=== PATIENT | male | born 1960 | race Caucasian/White ===

== ENCOUNTER 2017-12-16 23:30 | Emergency (ER) | payer OTHER ==
[~2017-12-16 23:30] MED LIST: ACTOS 15MG TAB15 MG PO; AMLODIPINE10 MG PO; CIPRO 500MG TA500 MG PO; CLEOCIN HCL300 M1 PO; CYCLOBENZAPRINE5 M2 PO; DILAUDID2 MG PO; HCTZ/LISINOPRIL1 TA2 PO; HYDRALAZINE10 MG PO; METFORMIN HCL500 MG PO; MORPHINE S10 MG/1 M1 IV; NAPROSYN500 M1 PO; NICOTINE PATCH1 EAC2 TOP; NORVASC 10MG10 MG PO; NORVASC10 M1 PO; NOVOLOG100 UNIT/2 SC; PERCOCET 325 MG1 TA2 PO; PERCOCET 5-3251 EACH PO; PRINIVIL10 MG PO; PROTONIX 40MG T40 MG PO; TRILIPIX 135 M135 MG PO; UNASYN 3 GM VIAL3 GM IV
== END 2017-12-16 23:57 | disposition admitted as inpatient to this hospital (09) ==
LOC: ERH 23:30
DX: R29.898 Other symptoms and signs involving the musculoskeletal system (principal)
CPT/HCPCS: 93005; 93010; 99281

== ENCOUNTER 2017-12-23 11:38 | Inpatient (IN) | payer OTHER ==
[~2017-12-23] VITALS: Ht 162.6 cm; Wt 81.7 kg
--- NOTE | 2017-12-23 12:48 | ED GENERAL ADULT ---
See Addendum History of Present Illness General Chief Complaint: General Adult Stated Complaint: PT STATES "I FOUND A TICK ON ME" WEAKNESS Source: patient Exam Limitations: intoxication Vital Signs & Intake/Output Vital Signs & Intake/Output Vital Signs Date Time Temp Pulse Resp B/P B/P Pulse O2 O2 Flow FiO2 Mean Ox Delivery Rate 12/23 1147 98.0 100 18 156/103 97 Room Air Allergies Coded Allergies: NO KNOWN ALLERGIES (02/09/15) Reconcile Medications Amlodipine Besylate (Norvasc) 10 MG TABLET 1 TAB PO DAILY HTN (Reported) Ampicillin Sodium/Sulbactam Na (Unasyn 3 Gm Vial) 3 GRAM VIAL 1 BAG IV Q8 ABSCESS Cyclobenzaprine HCl 5 MG TABLET 1 TAB PO TIDPRN PRN MUSCLE SPASMS Fenofibric Acid (Trilipix 135 MG CAP) 135 MG CAPSULE. 1 CAP PO DAILY daily (Reported) HYDRALAZINE HCL (Hydralazine) 10 MG TABLET 1 TAB PO TID HYPERTENSIOM Insulin Aspart (Novolog) 100 UNIT/ML VIAL 0 UNITS SC TIDAC DM TYPE 2 BLOOD SUGAR UNITS < 80 0 80-150 0 151-200 2 201-250 4 251-300 6 301-350 8 351-400 10 >400 12 CALL Morphine Sulfate 10 MG/ML VIAL 6 MG IV Q6P PRN PAIN 5-10 Naproxen (Naprosyn) 500 MG TABLET 1 TAB PO BID PRN PAIN AND INFLAMMATION Nicotine (Nicotine Patch) 14 MG/24 HOUR PATCH.TD24 14 MG TOP DAILY SMOKING Pantoprazole Sodium (Protonix) 40 MG TABLET. 40 MG PO DAILY GERD (Reported) Triage Note: PER PT WEAKNESS AND NERVE DAMAGE NOT "STRAIGHT" ON L SIDE CANT HOLD THINGS WITH L HAND TOOK A COUPLE OF LYRICA SLIGHT RELIEF. PT SPEECH ?SLURRED ADMITS TO WEED USE THIS AM EQUAL GRASPS GOOD STRENGTH TO ALL 4 EXTREMITIES Triage Nurses Notes Reviewed? yes HPI: PT PRESENTS TO ER ADMITTEDLY HIGH AND ON COCAINE. LAST USE PRIOR TO ARRIVAL. NOTES HE HAS HAD LEFT SIDED WEAKNESS X 3-5 DAYS (UNCLEAR DUE TO INTOX). PT HAD TROUBLE WITH HAND FACILITY ADMINISTRATOR ON THE LEFT. CONTINUED DROPPING THINGS. ALSO NOTED TROUBLE WITH WALKING, BUT IT IS VERY DIFFICULT TO ASSESS THIS HX. TOOK GIRLFRIENDS LYRICA X 2 DAYS TO SEE IF THAT WOULD HELP. HE HAS SIGNIFICANT MEDICAL COMORBIDITIES REPORTED BUT IS NONADHERENT WITH MED RX REGIMEN.HAS HTN, DM PER HIS REPORT. OTHERS UNKNOWN. RECENTLY FOUND A TICK ON HIS LOWER ABDOMEN. (TIMING UNCLEAR). WANTS TO GET CLEAN, AND FEEL BETTER. (Adele Vidal PA-C) Past History Travel History Traveled to [place] past 21 day No Medical History Any Pertinent Medical History? 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 Yes (Adele Vidal PA-C) Review of Systems Review of Systems Constitutional: Reports: see HPI, chills, weakness. Denies: diaphoresis, fever, malaise. EENTM: Denies: see HPI, blurred vision, double vision, visual changes, eye pain. Respiratory: Denies: see HPI, cough, hemoptysis, short of breath. Cardiovascular: Denies: see HPI, chest pain, edema, orthopena. GI: Denies: abdominal pain, melena, nausea, bloody stool, changes in stool, vomiting. Genitourinary: Denies: no symptoms. Musculoskeletal: Denies: see HPI. Skin: Reports: lesions (RIGHT LOWER ABDOMEN). Neurological/Psychological: Reports: anxiety, depressed, emotional problems, tremors. All Other Systems: Reviewed and Negative (Adele Vidal PA-C) Physical Exam Physical Exam General Appearance: well developed/nourished, anxious, intoxicated Head: atraumatic, normal appearance Eyes: Bilateral: other (DILATION). Ears, Nose, Throat: normal pharynx, hearing grossly normal, POOR DENTITION/ EDENTULOUS Neck: supple, full range of motion Respiratory: normal breath sounds, chest non-tender, no respiratory distress Cardiovascular: regular rate/rhythm Gastrointestinal: normal bowel sounds, soft, non-tender Extremities: normal inspection, no edema Neurologic/Psych: awake, alert, oriented x 3, abnormal gait, aphasia, motor/ sensory deficits Skin: intact, normal color Core Measures ACS in differential dx? No CVA/TIA Diagnosis: Yes Sepsis Present: No Sepsis Focused Exam Completed? No (Young OROURKE,Adele) Progress Differential Diagnoses I considered the following diagnoses in my evaluation of the patient: CVA TIA Intoxication (majrijuana, cocaine, etoh) acute renal failure] 1432: pt with acute kidney injury. on ivf. awaiting urine and urine tox. CT head noted with chronic microvascular changes. Cannot r/o acute changes. Discussed with MOD/hospitalist. Admit for further eval. with MRI and follow labs. Plan of Care: Orders Procedure Date/time Status Regular Diet 12/23 D Active Patient Data 12/23 1435 Active OXYGEN SETUP (GEN) 12/23 1425 Active Saline Lock 12/23 1425 Active Admit to inpatient 12/23 1425 Active Vital Signs 12/23 1425 Active Activity/Ambulation 12/23 1425 Active Code Status 12/23 1425 Active Intake & Output 12/23 1300 Active ETHANOL 12/23 1239 Complete URINE DRUGS OF ABUSE 12/23 1238 Active URINALYSIS 12/23 1238 Active TROPONIN LEVEL 12/23 1238 Complete COMPREHENSIVE METABOLIC PANEL 12/23 1238 Complete CBC WITHOUT DIFFERENTIAL 12/23 1238 Complete EKG 12/23 1238 Active Laboratory Tests 12/23/18 1256: Anion Gap 12, Estimated GFR 39 L, BUN/Creatinine Ratio 16.7, Glucose 150 H, Calcium 9.0, Total Bilirubin 0.6, AST 20, ALT 42, Alkaline Phosphatase 60, Troponin I 0.02, Total Protein 6.6, Albumin 3.8, Globulin 2.8, Albumin/Globulin Ratio 1.4, CBC w Diff NO MAN DIFF REQ, RBC 5.33, MCV 86.3, MCH 29.5, MCHC 34.2, RDW 12.5, MPV 8.1, Gran % 64.6, Lymphocytes % 23.3, Monocytes % 8.8, Eosinophils % 2.8, Basophils % 0.5, Absolute Granulocytes 6.8 H, Absolute Lymphocytes 2.4, Absolute Monocytes 0.9 H, Absolute Eosinophils 0.3, Absolute Basophils 0, Serum Alcohol < 10.0 Initial ED EKG: normal sinus rhythm, NSR (Adele Vidal PA-C) Departure Departure Disposition: STILL A PATIENT Condition: Stable Clinical Impression Primary Impression: Acute renal failure (ARF) Secondary Impressions: Stroke Referrals: Patient Has No Primary Care Dr (PCP/Family) Departure Forms: Customer Survey General Discharge Information (Adele Vidal PA-C) PA/PLATE GRAINER Co-Sign Statement Statement: ED Attending supervision documentation- I saw and evaluated the patient. I have also reviewed all the pertinent lab results and diagnostic results. I agree with the findings and the plan of care as documented in the PA's/PLATE GRAINER's documentation. x I have reviewed the ED Record and agree with the PA's/PLATE GRAINER's documentation. [] Additions or exceptions (if any) to the PAs/PLATE GRAINER's note and plan are summarized below: [] (Peg HAYES,Fernando) Critical Care Note Critical Care Note Critical Care Time: non-applicable (Adele Vidal PA-C)
[2017-12-23 13:07] LABS: ABSOLUTE BASOPHIL COUNT 0 /CUMM (0.0-0.2); ABSOLUTE EOSINOPHIL COUNT 0.3 /CUMM (0.0-0.7); ABSOLUTE GRANULOCYTE CT 6.8 /CUMM (1.4-6.5); ABSOLUTE LYMPH COUNT 2.4 /CUMM (1.2-3.4); ABSOLUTE MONOCYTE COUNT 0.9 /CUMM (0.10-0.60); BASOPHIL % 0.5 % (0.0-2.0); EOSINOPHIL % 2.8 % (0-5); GRANULOCYTE % 64.6 % (42.2-75.2); MEAN CORPUSCULAR HGB 29.5 PG (27.0-31.0); MEAN CORPUSCULAR HGB CONC 34.2 G/DL (33.0-37.0); MEAN CORPUSCULAR VOLUME 86.3 FL (80.0-94.0); MEAN PLATELET VOLUME 8.1 FL (7.4-10.4); PLATELET COUNT 253 /CUMM (130-400); RBC DISTRIBUTION WIDTH 12.5 % (11.5-14.5); RED BLOOD CELL CT 5.33 /CUMM (4.70-6.10); WHITE BLOOD CELL COUNT 10.5 /CUMM (4.8-10.8)
--- NOTE | 2017-12-23 13:40 | CT SCAN REPORT ---
EXAMINATION: CT HEAD WITHOUT CONTRAST CLINICAL INFORMATION: Left-sided weakness for 3 days. Assess for stroke. COMPARISON: CT scan maxillofacial 05/01/2016. CT scan of the head 07/04/2009. TECHNIQUE: Contiguous axial imaging was performed from the skull base to vertex without intravenous administration of contrast. DLP: 607.31 mGy-cm FINDINGS: The study redemonstrates areas of linear lucency in the anterior basal ganglia bilaterally, more extensive on the right than the left. These were present on the 2015 study, but are new compared to the 2009 study. There are consistent with sequelae of prior infarcts. An area of low attenuation is noted in the right periventricular white matter superior medial to the linear area of low attenuation, and is consistent with a chronic infarct. There are areas of low attenuation in the right centrum semiovale, which may be consistent with chronic microvascular ischemic changes, although an area of more acute ischemia cannot be excluded. There are moderate atheromatous calcifications of the bilateral cavernous internal carotid arteries and the left vertebral artery. No dense middle cerebral artery is demonstrated. There is no evidence of acute intracranial hemorrhage or territorial infarction. There is no abnormal mass effect or midline shift. Hardy to white matter differentiation is well preserved. No extra-axial fluid collections are identified. The ventricles and sulci are within normal limits. There is interval increase in the calcification in the interhemispheric fissure anteriorly. There are no acute osseous findings. The study partially demonstrates a lipoma posterior to the right sternocleidomastoid muscle. The mastoid air cells are well-aerated. The left frontal sinus is not pneumatized. The other paranasal sinuses appear well-aerated. IMPRESSION: 1. There are no acute territorial infarcts or bleeds. 2. There are linear areas of low attenuation in the basal ganglia bilaterally, demonstrated on prior imaging consistent with sequelae of chronic infarcts. An area of low attenuation in the right periventricular white matter is is consistent with sequelae of a chronic infarct. 3. Low attenuation in the right sharp radiata is nonspecific may be consistent with chronic microvascular ischemic changes, although an area of more acute ischemia cannot be excluded on the basis of this study.
--- NOTE | 2017-12-23 14:56 | History & Physical ---
Kelby HAYES,[facility] 12/23/17 1455: General Information and HPI MD Statement: I have seen and personally examined CHRIS BLANK and documented this H&P. The patient is a 57 year old M who presented with a patient stated chief complaint of cocaine abuse and left sided weakness Source of Information: patient, friend Exam Limitations: no limitations History of Present Illness: 57-year-old gentleman with a past medical history significant for cocaine abuse with multiple outpatient and rehabilitation treatment failures, CK D stage III, type 2 diabetes, hypertension, noncompliance with medication therapy stopping his BP and diabetes medication more than a year ago, presents to [facility] ED with c/o of 1 week history of left-sided weakness and request for cocaine detox. Pt reports that he uses cocaine on almost a daily basis and his last use was a few hours before presenting to the ED. He also reports that for the past 1 week he has noticed left-sided upper and lower extremity weakness with noticeable decrease of strength while ambulating and also use when using his left hand for grasping objects. Denies similar symptoms in the past. No report any recent head or back trauma. He is a poor historian and is not able to give more details regarding his left-sided weakness. He does deny any facial droop, dysarthria, confusion or disorientation. His girlfriend was at bedside and did correlate pt's story that there was no focal neurological deficit other than the left sided weakness. No report of any fever, chills, shortness of breath, chest pain, palpitation, diaphoresis,abdominal pain or dysuria. He does report removing a tick on his right inguinal area on Sunday, he does not recall how long the tick was on his body. Regarding his cocaine use, he states that he's been to rehabilitation multiple times without any success. He appears remorseful about his cocaine use and repeatedly states that he needs help to fix his cocaine problem. 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 self Services at Home: None Primary Language: Urdu Illicit Drug Use: cocaine, marijuana Living Will? no Functional Ability ADLs Independent: dressing, eating, toileting, bathing. Ambulation: independent IADLs Independent: shopping, housework, finances, food prep, telephone, transportation , medication admin. Review of Systems Review of Systems Constitutional: Reports: see HPI. EENTM: Reports: no symptoms. Cardiovascular: Reports: no symptoms. Respiratory: Reports: no symptoms. GI: Reports: diarrhea. Genitourinary: Reports: no symptoms. Musculoskeletal: Reports: no symptoms. Skin: Reports: no symptoms. Neurological/Psychological: Reports: see HPI. Hematologic/Endocrine: Reports: no symptoms. Immunologic/Allergic: Reports: no symptoms. All Other Systems: Reviewed and Negative Exam & Diagnostic Data Last 24 Hrs of Vital Signs/I&O Vital Signs Date Time Temp Pulse Resp B/P B/P Pulse O2 O2 Flow FiO2 Mean Ox Delivery Rate 12/23 1147 98.0 100 18 156/103 97 Room Air Physical Exam General Appearance Alert, Oriented X3, Cooperative Skin No Significant Lesion, small less then 1 cm mild eythema tick bite area around the right inguinal area. Skin Temp/Moisture Exam: Warm/Dry Sepsis Skin Exam (color): Normal for Ethnicity Neck Supple, No JVD Lymphatic Cervical nl Cardiovascular Regular Rate, Normal S1, Normal S2, No Murmurs Lungs Clear to Auscultation, Normal Air Movement Abdomen Normal Bowel Sounds, Soft, No Tenderness, No Hepatospenomegaly, No Masses Neurological Normal Gait, Normal Speech, Strength at 5/5 X4 Ext, Normal Tone, Sensation Intact, Cranial Nerves 3-12 NL, Reflexes 2+ Extremities No Clubbing, No Cyanosis, No Edema, No Tenderness/Swelling Vascular Normal Pulses, Pulses Symmetrical Diagnostic Data EKG Results non specific t wave abnormalities on lateral leads. Assessment/Plan Assessment: [id number] gentleman with a past medical history significant for cocaine abuse , see daily stage III, diabetes type 2, hypertension, stopped taking any medication more than one year ago, presents with one-week history of left-sided weakness and a request for cocaine detox. When seen by the medical staff in the ED patient did not exhibit any focal neurological deficit. CT obtained was suggestive of chronic ischemic changes. CT Findings: 1. There are no acute territorial infarcts or bleeds. 2. There are linear areas of low attenuation in the basal ganglia bilaterally, demonstrated on prior imaging consistent with sequelae of chronic infarcts. An area of low attenuation in the right periventricular white matter is is consistent with sequelae of a chronic infarct. 3. Low attenuation in the right sharp radiata is nonspecific may be consistent with chronic microvascular ischemic changes, although an area of more acute ischemia cannot be excluded on the basis of this study. Impression * Left-sided weakness in both upper and lower extremity with onset of about one week but now completely resolved. atient does not appear to have any other focal neurological deficits including dysarthria or facial drooping, acute stroke is a very low probability. It should also be noted that patient is way past the TPA window. He does have CT finding suggestive of chronic infarcts, including areas of the sharp radiata which could signify lacuna strokes especially in a hypertensive patient who is noncompliant and concomitant use of cocaine. Hemiparesis can also presenting in infectious etiology such as meningitis and encephalitis, however patient is afebrile, did not report any fevers at home, has no leukocytosis or headaches/neck rigidity, therefore infection is low probability. His report of Tick bite and physical finding of small erythematous area consistent with an insect bite, warrants consideration of Lyme, however the timeframe of 2-3 days hx and lack of of other neuroligal deficit including the face, makes disseminated lyme disease less likely. * Polysubstance abuse evident by a positive U tox of PCP, cocaine and cannabis. * CKD stage III. Most likely secondary to hypertensive and diabetic neuropathy. * History of chronic disease; diabetes, hypertension. Plan * Admit to telemetry * Patient passed swallow evaluation with an intact gag reflex, and was eating a cheeseburger, will put patient on diabetic diet. * NIH every 3-4 hours for now for seizure precautions and monitor any neurological changes. * Aspirin 81 mg daily and atorvastatin 40 mg daily in the context of chronic subcortical infarcts * MRI tomorrow morning to better visualize and assess the areas of chronic infarct * Currently patient is stable with no elevated blood pressure or agitation, will therefore hold off on any benzodiazepine and continue with supportive measures for his cocaine and PCP detox. We'll start benzodiazepine if blood pressure begins to be elevated and patient has any increased agitation. * Accu-Chek 3 times a day and bedtime * NovoLog sliding scale * Will consider renal u/s if creatinine increases * Will obtain Lyme titers * Physical therapy evaluation tomorrow morning given that the patient is below baseline * Social consult tomorrow morning * DVT prophylaxis; heparin * CODE STATUS full As Ranked By This Provider Problem List: 1. Left-sided weakness 2. CKD (chronic kidney disease) stage 3, GFR 30-59 ml/min 3. Polysubstance abuse Core Measures/Misc (03/18) Acute Coronary Syndrome ACS Diagnosis: No Congestive Heart Failure Congestive Heart Failure Diagnosis No Cerebrovascular Accident CVA/TIA Diagnosis: No VTE (View Protocol) VTE Risk Factors Acute Medical Illness No Mechanical VTE Prophylaxis d/t N/A MechProphylax Ordered No VTE Pharm Prophylaxis d/t NA PharmProphylax ordered Sepsis (View protocol) Sepsis Present: No If YES complete Sepsis Event Note If YES complete Sepsis Event Note Anabella Hope MD 12/23/17 1554: Core Measures/Misc (03/18) Sepsis (View protocol) If YES complete Sepsis Event Note If YES complete Sepsis Event Note Attending MD Review Statement Attending Statement Attending MD Statement: examined this patient, discuss w/resident/PA/PUBLIC HEALTH REPRESENTATIVE, agreed w/resident/PA/PUBLIC HEALTH REPRESENTATIVE, reviewed EMR data (avail) Attending Assessment/Plan: 57M PMH cocaine abuse (last use just prior to arriving in ER), poor medication compliance, nephrolithiasis, chronic kidney disease stage III, type 2 diabetes mellitus [id number], and HTN presenting with 3 days of left arm weakness, difficulty walking due to left leg weakness, and wish for detox. Patient is poor historian due to cocaine intoxication. He noticed that he had trouble grabbing things with his left hand. He had this problem on arrival but it appears to have improved. His neuro exam is normal, though difficulty to assess due to non-compliance. Creatinine is 1.8. EKG NSR. CT head shows chronic changes throughout. 1. Cocaine intoxication 2. JUAN 3. Left sided weakness Plan - Admit to telemetry - MRI head - Ativan PRN CIWA - If neuro symptoms persist with sobriety will obtain neurology consult - Out of window for tPA or thrombectomy - ASA and statin - Serial EKG and troponin - Social work consult - IV hydration - Monitor renal function and urine output - DVT PPx
--- NOTE | 2017-12-23 15:57 | Admission Certification ---
Admission Certification Certification Statement - As attending physician, I certify that at the time of - admission, based on clinical presentation, severity of - symptoms, need for further diagnostic testing and - therapeutic interventions, and risk of adverse outcomes - without in-hospital treatment, in my clinical assessment, - this patient requires an acute hospital stay for a minimum - of two nights or longer. I have also considered psychsocial - factors such as support system, advanced age, financial - issues, cognitive issues, and failed out-patient treatments, - past re-admission history, safety of patient, and lack of - compliance as applicable. Specific rationale supporting this admission is: Left sided weakness concerning for CVA, JUAN, cocaine intoxication
[2017-12-23 17:16] VITALS: BP 146/84
[2017-12-23 22:01] VITALS: BP 136/74
[2017-12-24 06:46] VITALS: BP 160/84
--- NOTE | 2017-12-24 07:29 | PN- Housestaff ---
Salbador HAYES,Sylvia 12/24/17 0729: Subjective Follow-up For: stroke coccaiine abuse HTN Subjective: pt was seen and examined , continues to c/o of LUE weakness, will go for MRI today Review of Systems Constitutional: Reports: see HPI. Objective Last 24 Hrs of Vital Signs/I&O Vital Signs Date Time Temp Pulse Resp B/P B/P Pulse O2 O2 Flow FiO2 Mean Ox Delivery Rate 12/24 1455 98.0 75 18 158/80 97 Room Air 12/24 0646 97.6 68 20 160/84 95 Room Air 12/24 0000 Room Air 12/23 2201 98.2 77 22 136/74 96 12/23 1716 98.2 87 24 146/84 94 Intake & Output 12/24 1600 12/24 0800 12/24 0000 Intake Total 1400 775 Output Total Balance 1400 775 Intake, IV 600 375 Intake, Oral 800 400 Number 2 Bowel Movements Patient 170 lb 170 lb Weight Weight Bed scale Measurement Method Physical Exam General Appearance: Alert, Oriented X3, Cooperative, No Acute Distress HEENT: Atraumatic, PERRLA, EOMI, Mucous Membr. moist/pink Cardiovascular: Normal S1, Normal S2, No Murmurs Lungs: Clear to Auscultation Abdomen: Normal Bowel Sounds, Soft Neurological: left sided weakness, sensations intact Extremities: No Clubbing, No Cyanosis, No Edema Assessment/Plan Assessment: [id number] gentleman with a past medical history significant for cocaine abuse , see daily stage III, diabetes type 2, hypertension, stopped taking any medication more than one year ago, presents with one-week history of left-sided weakness and a request for cocaine detox. When seen by the medical staff in the ED patient did not exhibit any focal neurological deficit. CT obtained was suggestive of chronic ischemic changes. CT Findings: 1. There are no acute territorial infarcts or bleeds. 2. There are linear areas of low attenuation in the basal ganglia bilaterally, demonstrated on prior imaging consistent with sequelae of chronic infarcts. An area of low attenuation in the right periventricular white matter is is consistent with sequelae of a chronic infarct. 3. Low attenuation in the right sharp radiata is nonspecific may be consistent with chronic microvascular ischemic changes, although an area of more acute ischemia cannot be excluded on the basis of this study. MRI: showed features of acute ischemic stroke Impression * Left-sided weakness in both upper and lower extremity with onset of about one week but now completely resolved. bridget does not appear to have any other focal neurological deficits including dysarthria or facial drooping, MRI showed acute ischemic stroke however the timeframe of 2-3 days , makes him out of TPA window * Polysubstance abuse evident by a positive U tox of PCP, cocaine and cannabis. * CKD stage III. Most likely secondary to hypertensive and diabetic neuropathy. * History of chronic disease; diabetes, hypertension. * arryhtmia: newly discovered Wenkebach Plan * Monitor on telemetry * Patient passed swallow evaluation with an intact gag reflex, and was eating a cheeseburger, will put patient on diabetic diet. * NIH every 3-4 hours for now for seizure precautions and monitor any neurological changes. * Aspirin 81 mg daily and atorvastatin 40 mg daily in the context of chronic subcortical infarcts * Neurology consult appreciated * Cardiology consult appreciated * Start Clodipine 0.1 mg TID PRN for high blood pressure * Currently patient is stable with no elevated blood pressure or agitation, will therefore hold off on any benzodiazepine and continue with supportive measures for his cocaine and PCP detox. We'll start benzodiazepine if blood pressure begins to be elevated and patient has any increased agitation. * Accu-Chek 3 times a day and bedtime * NovoLog sliding scale * Will consider renal u/s if creatinine increases * Will obtain Lyme titers * Physical therapy evaluation tomorrow morning given that the patient is below baseline * Social consult tomorrow morning * DVT prophylaxis; heparin * CODE STATUS full Problem List: 1. Left-sided weakness 2. Stroke 3. Cocaine abuse Pain Ratin Pain Location: LLQ Pain Goal: Remain pain free Pain Plan: Pathway Tomorrow's Labs & Rationales: CBC,BEP ChecoMikhail hawkins 12/24/17 1151: Attending MD Review Statement Attending Statement Attending MD Statement: examined this patient, discuss w/resident/PA/AGRICULTURAL COMMODITIES GRADER, agreed w/resident/PA/AGRICULTURAL COMMODITIES GRADER, discussed with family, reviewed EMR data (avail), discussed with nursing, discussed with case mgmt, reviewed images, amended to note Attending Assessment/Plan: Patient seen/examined bedside. No new complaints. Wants to sleep. Admitted here for cocaine intoxication and acute kidney injury. BP 136/74 Overnight events with mobitz typ2 AV block on EKG, cardiology consult. Plan for cardiac catheterization as per cardiology. AVOID b [place]. Acute CVA with Left sided weakness. No acute issues. PT consult. Neurology consult. MRI brain suggestive of infarct. ASA/statin. hbaic 8.1 New onset Diabetes mellitus. RISS and titrate insulin as needed. Metformin at discharge. Diabetes education to be given. Drug abstinence advised. Continue telemetry monitroing
[2017-12-24 07:58] LABS: ABSOLUTE BASOPHIL COUNT 0.1 /CUMM (0.0-0.2); ABSOLUTE EOSINOPHIL COUNT 0.3 /CUMM (0.0-0.7); ABSOLUTE LYMPH COUNT 2.2 /CUMM (1.2-3.4); ABSOLUTE MONOCYTE COUNT 0.4 /CUMM (0.10-0.60); BASOPHIL % 0.8 % (0.0-2.0); EOSINOPHIL % 4.6 % (0-5); GRANULOCYTE % 57.3 % (42.2-75.2); HEMATOCRIT 43.3 % (42-52); MEAN CORPUSCULAR HGB 29.8 PG (27.0-31.0); MEAN CORPUSCULAR HGB CONC 33.8 G/DL (33.0-37.0); MEAN CORPUSCULAR VOLUME 88.1 FL (80.0-94.0); MEAN PLATELET VOLUME 8.6 FL (7.4-10.4); PLATELET COUNT 235 /CUMM (130-400); RBC DISTRIBUTION WIDTH 12.2 % (11.5-14.5); RED BLOOD CELL CT 4.92 /CUMM (4.70-6.10)
--- NOTE | 2017-12-24 11:59 | MRI REPORT ---
EXAMINATION: MR BRAIN WITHOUT CONTRAST CLINICAL INFORMATION: CT findings of chronic ischemic changes. Subacute stroke. COMPARISON: CT scan of the head 12/23/2017. TECHNIQUE: MRI of the brain without contrast was obtained using routine sequences. FINDINGS: There is an area of restricted diffusion in the right periventricular region posteriorly. This corresponds to an area of T2 and FLAIR hyperintensity, consistent with an acute infarct. A small focus of diffusion hyperintensity in the left basal ganglia does not demonstrate low ADC map signal, and is consistent with a small focus of subacute ischemia. Neither of these regions demonstrates evidence of hemorrhage. No hemorrhage is demonstrated elsewhere. No mass effect or midline shift is seen. The ventricles and sulci appear normal. In addition to the signal changes described above, there are areas of increased T2 and FLAIR hyperintensity in the periventricular and subcortical white matter, as well as within the nain consistent with chronic microvascular ischemic disease. An area of linear mixed signal in the posterior right basal ganglia demonstrates some low gradient signal, consistent sequelae of a hemorrhagic likely hypertensive infarct. There are lacunar infarcts in the basal ganglia bilaterally and in the posterior left cerebellar hemisphere. No evidence of acute ischemia is seen in the right centrum semiovale. No extra-axial fluid collections are seen. The craniovertebral junction, marrow signal, and midline structures are normal. The major intracranial flow-voids at the level of the [place] are preserved. The dural venous sinus flow-voids are maintained. The mastoid air cells are well-aerated. The left frontal sinus is not pneumatized. There is mild mucoperiosteal thickening in the ethmoid sinuses bilaterally. IMPRESSION: 1. There is a small area of restricted diffusion consistent with an acute infarct in the right periventricular region posteriorly. There is no evidence of hemorrhagic transformation. A small focus of facilitated diffusion in the left basal ganglia is consistent with subacute ischemia. 2. There are microvascular ischemic changes in the white matter and in the nain. There are chronic infarcts in the bilateral basal ganglia and left cerebral hemisphere. Linear low signal in the right basal ganglia is consistent with sequelae of prior hemorrhagic infarct, likely hypertensive.
[2017-12-24 14:55] VITALS: BP 158/80
--- NOTE | 2017-12-24 15:56 | Cons- Cardiology ---
General Information and HPI Consulting Request Date of Consult: 12/24/17 Requested By: Mikhail Kessler MD Reason for Consult: Intermittent second degree type 2 AV block Source of Information: patient, family Exam Limitations: poor historian History of Present Illness: 57 year old gentleman presenting with left sided weakness, speech slurring, loss of balance, loss of dexterity in the left hand, some dysphagia (could not swallow entire bolus of food, without aspiration) for approximately 1 week. Initially presented to the ED last week after experiencing 2 falls due to weakness of the left leg and loss of balance, no head trauma. Labs and EKG were within normal limits and patient was discharged. He had taken non-prescribed Lyrica which he obtained from friends/street, and initially thought the weakness was associated with the Lyrica, however the weakness persisted and patient also noticed a tick on the right side of his groin, and returned to the ED on the evening of december [address] scan showed multiple small chronic and subacute infarcts, the drug screen was positive for cocaine and THC, and patient admits to consuming cocaine on a daily basis. A cardiology referral was placed due to fortuitous finding of one episode of second degree type 2 AV block, incolving a single dropped beat, patient was asymptomatic. EKG reveals non specific ST-T changes in the inferior leads. Patient denies chest pains, denies dyspnea, denies paroxysmal nocturnal dyspnea, denies palpitations, denies syncope, denies dizziness. 2 brothers in their 40s as a result of esophageal cancer in one case (heavy drinker) and cirrhosis ( ?) in the other case. His functional capacity is restricted by right hip pain as well as burning pain involving the sole of the right foot. Allergies/Medications Allergies: Coded Allergies: NO KNOWN ALLERGIES (02/09/15) Home Med List: No Known Home Medications Current Medications: Current Medications Sig/Erika Start time Last Medication Dose Route Stop Time Status Admin Acetaminophen 650 MG ONCE ONE 12/24 1300 DC 12/24 PO 12/24 1301 1300 Amlodipine Besylate 5 MG DAILY 12/25 0900 AC PO Aspirin 81 MG DAILY 12/23 1630 AC 12/25 PO 0831 Atorvastatin Calcium 80 MG 1700 12/24 1700 AC 12/24 PO 1710 Heparin Sodium 5,000 UNIT Q8 12/23 2200 AC 12/25 (Porcine) SC 0527 Insulin Aspart 0 TIDAC 12/23 1700 12/25 [place] 0831 Lorazepam 0 Q1P PRN 12/23 1745 IV Nicotine 7 MG DAILY 12/24 1554 12/25 [facility] 0834 Review of Systems Review of Systems Constitutional: Reports: weakness. Denies: chills, diaphoresis, fever, malaise, unexplained weight loss. EENTM: Denies: blurred vision, double vision, visual changes, eye pain, epistaxis, throat pain. Cardiovascular: Reports: see HPI. Respiratory: Denies: cough, hemoptysis, orthopnea, short of breath, sputum production, stridor, wheezing. GI: Denies: abdominal pain, bloating, constipation, diarrhea, distention, bowel incontinence, melena, nausea, bloody stool, changes in stool (gastric reflux). Genitourinary: Denies: dysuria, hematuria, nocturia. Musculoskeletal: Reports: see HPI, back pain. Neurological/Psychological: Reports: numbness, paresthesia, weakness (weakness in the right arm/leg). Hematologic/Endocrine: Denies: bruising, bleeding, polyuria, polydipsia. Immunologic/Allergic: Denies: HIV/AIDS. 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 Home Who Do You Live With? self Services at Home: None Primary Language: Wallisian Smoking Status: Current Everyday Smoker Illicit Drug Use: cocaine, marijuana Living Will? no Functional Ability ADLs Independent: dressing, eating, toileting, bathing. Ambulation: independent IADLs Independent: shopping, housework, finances, food prep, telephone, transportation , medication admin. Exam & Diagnostic Data Vital Signs and I&O Vital Signs Date Time Temp Pulse Resp B/P B/P Pulse O2 O2 Flow FiO2 Mean Ox Delivery Rate 12/24 1455 98.0 75 18 158/80 97 Room Air 06/25 0646 97.6 68 20 160/84 95 Room Air 12/24 0000 Room Air 12/23 2201 98.2 77 22 136/74 96 12/23 1716 98.2 87 24 146/84 94 Intake & Output 12/24 1600 12/24 0800 12/24 0000 12/23 1600 12/23 0800 12/23 0000 Intake Total 4348 117 5760 Output Total Balance 0625 504 4426 Intake, IV 503 951 5829 Intake, Oral 800 400 Number 2 Bowel Movements Patient 170 lb 170 lb 185 lb Weight Weight Bed scale Measurement Method Physical Exam General Appearance: well developed/nourished, alert, awake, anxious Head: atraumatic Eyes: Bilateral: normal appearance, PERRL, EOMI. Ears, Nose, Throat: normal pharynx, normal ENT inspection Neck: supple, full range of motion (no JVD), trachea mid line Respiratory: normal breath sounds, chest non-tender, no respiratory distress, lungs clear Cardiovascular: regular rate/rhythm (no murmur, no rub) Peripheral Pulses: 4+ carotid (R), 4+ carotid (L), 4+ radial (R), 4+ radial (L), 4+ femoral (R), 4+ femoral (L), 2+ tibialis posterior (R), 2+ tibialis posterior (L), 2+ dorsalis pedis (R), 2+ dorsalis pedis (L) Gastrointestinal: normal bowel sounds, soft, non-tender, no organomegaly Back: normal inspection Extremities: normal capillary refill, no edema Neurologic/Psych: awake, alert, oriented x 3, facial droop (slight slurring of words), motor weakness (left arm drift. ) Labs/Cu[place]emoc Results: Laboratory Tests 12/24 2100 Chemistry Sodium (137 - 145 mmol/L) 140 Potassium (3.5 - 5.1 mmol/L) 4.1 Chloride (98 - 107 mmol/L) 109 H Carbon Dioxide (22 - 30 mmol/L) 23 Anion Gap (5 - 16) 8 BUN (9 - 20 mg/dL) 24 H Creatinine (0.7 - 1.2 mg/dL) 1.4 H Estimated GFR (>60 ml/min) 52 L BUN/Creatinine Ratio (7 - 25 %) 17.1 Troponin I (<0.11 ng/ml) 0.02 Hematology CBC w Diff NO MAN DIFF REQ WBC (4.8 - 10.8 /CUMM) 7.0 RBC (4.70 - 6.10 /CUMM) 4.92 Hgb (14.0 - 18.0 G/DL) 14.6 Hct (42 - 52 %) 43.3 MCV (80.0 - 94.0 FL) 88.1 MCH (27.0 - 31.0 PG) 29.8 MCHC (33.0 - 37.0 G/DL) 33.8 RDW (11.5 - 14.5 %) 12.2 Plt Count (130 - 400 /CUMM) 235 MPV (7.4 - 10.4 FL) 8.6 Gran % (42.2 - 75.2 %) 57.3 Lymphocytes % (20.5 - 51.1 %) 31.0 Monocytes % (1.7 - 9.3 %) 6.3 Eosinophils % (0 - 5 %) 4.6 Basophils % (0.0 - 2.0 %) 0.8 Absolute Granulocytes (1.4 - 6.5 /CUMM) 4.0 Absolute Lymphocytes (1.2 - 3.4 /CUMM) 2.2 Absolute Monocytes (0.10 - 0.60 /CUMM) 0.4 Absolute Eosinophils (0.0 - 0.7 /CUMM) 0.3 Absolute Basophils (0.0 - 0.2 /CUMM) 0.1 12/23 12/23 1445 1256 Chemistry Sodium (137 - 145 mmol/L) 141 Potassium (3.5 - 5.1 mmol/L) 4.4 Chloride (98 - 107 mmol/L) 105 Carbon Dioxide (22 - 30 mmol/L) 25 Anion Gap (5 - 16) 12 BUN (9 - 20 mg/dL) 30 H Creatinine (0.7 - 1.2 mg/dL) 1.8 H Estimated GFR (>60 ml/min) 39 L BUN/Creatinine Ratio (7 - 25 %) 16.7 Glucose (65 - 99 mg/dL) 150 H Hemoglobin A1c (4.2 - 5.8 %) 8.1 H Calcium (8.4 - 10.2 mg/dL) 9.0 Total Bilirubin (0.2 - 1.3 mg/dL) 0.6 AST (17 - 59 U/L) 20 ALT (21 - 72 U/L) 42 Alkaline Phosphatase (< 127 U/L) 60 Creatine Kinase (55 - 170 U/L) 136 Troponin I (<0.11 ng/ml) 0.02 Total Protein (6.3 - 8.2 g/dL) 6.6 Albumin (3.5 - 5.0 g/dL) 3.8 Globulin (1.9 - 4.2 gm/dL) 2.8 Albumin/Globulin Ratio (1.1 - 2.2 %) 1.4 Triglycerides (<150 mg/dL) 127 Cholesterol (< 200 MG/DL) 224 H LDL Cholesterol, Calc (65 - 129 mg/dL) 157 H HDL Cholesterol (40 - 60 mg/dL) 42 Cholesterol/HDL Ratio (0.00 - 4.88 %) 5 H Hematology CBC w Diff NO MAN DIFF REQ WBC (4.8 - 10.8 /CUMM) 10.5 RBC (4.70 - 6.10 /CUMM) 5.33 Hgb (14.0 - 18.0 G/DL) 15.7 Hct (42 - 52 %) 46.0 MCV (80.0 - 94.0 FL) 86.3 MCH (27.0 - 31.0 PG) 29.5 MCHC (33.0 - 37.0 G/DL) 34.2 RDW (11.5 - 14.5 %) 12.5 Plt Count (130 - 400 /CUMM) 253 MPV (7.4 - 10.4 FL) 8.1 Gran % (42.2 - 75.2 %) 64.6 Lymphocytes % (20.5 - 51.1 %) 23.3 Monocytes % (1.7 - 9.3 %) 8.8 Eosinophils % (0 - 5 %) 2.8 Basophils % (0.0 - 2.0 %) 0.5 Absolute Granulocytes (1.4 - 6.5 /CUMM) 6.8 H Absolute Lymphocytes (1.2 - 3.4 /CUMM) 2.4 Absolute Monocytes (0.10 - 0.60 /CUMM) 0.9 H Absolute Eosinophils (0.0 - 0.7 /CUMM) 0.3 Absolute Basophils (0.0 - 0.2 /CUMM) 0 Serology Lyme Disease Antibody (RATIO) 0.13 Toxicology Urine Opiates Screen (>2000 NG/ML) < 100 Methadone Screen (>300 NG/ML) < 40 Barbiturate Screen (>200 NG/ML) 77 Ur Phencyclidine Scrn (>25 NG/ML) 27.20 H Amphetamines Screen (>1000 NG/ML) 104 U Benzodiazepines Scrn (>200 NG/ML) < 85 Urine Cocaine Screen (>300 NG/ML) > 1000 H Urine Cannabis Screen (>50 NG/ML) 79.40 H Serum Alcohol (<10 MG/DL) < 10.0 Urines Urine Color (YEL,AMB,STR) YEL Urine Clarity (CLEAR) CLEAR Urine pH (5.0 - 8.0) 6.0 Ur Specific [place] (1.001 - 1.035) >= 1.030 Urine Protein (NEG,<30 MG/DL) 100 H Urine Ketones (NEG) NEG Urine Nitrite (NEG) NEG Urine Bilirubin (NEG) NEG Urine Urobilinogen (0.1 - 1.0 EU/dl) 0.2 Ur Leukocyte Esterase (NEG) NEG Ur Microscopic SEDIMENT EXAMINED Urine RBC (0 - 5 /HPF) 1-3 Urine WBC (0 - 2 /HPF) RARE Ur Epithelial Cells (NONE,FEW) FEW Urine Bacteria (NEG/NONE) RARE H Hyaline Casts (0/LPF) RARE H Urine Mucus (FEW,NONE) FEW Micro UA Comment MORE INFO: H Urine Hemoglobin (NEG) TRACE-LYSED H Urine Glucose (N MG/DL) NEG Assessment/Plan Assessment/Plan Multiple subacute and chronic cerebral infarcts in patient with daily cocaine use and surrent smoker, with focal deficits X 1 week. Acute kidney injury which is improving since admission. Hyperglycemia without previously diagnosed diabetes. Second degree type 2 AV block X 1 episode, asymptomatic. Inferior ischemic changes on EKG. Patient has a very high pretest probability of significant coronary lesions. I talked to the patient about the possibility of doing a coronary angiography first or a nuclear stress test; given recent JUAN and suspected complicance issues, i would prefer beginning with a nuclear stress test, which could be performed as an outpatient. An echocardiogram has also been requested. I would maintain patient on ASA 81 mg daily for the moment. Problem List: 1. Hyperlipidemia 2. Blood glucose elevated 3. Acute kidney injury 4. Cocaine abuse 5. Polysubstance abuse 6. Stroke Consult Acknowledgment - Thank you for your consult request.
[2017-12-24 22:22] VITALS: BP 158/90
[2017-12-25 06:39] VITALS: BP 174/92
--- NOTE | 2017-12-25 07:13 | PN- Housestaff ---
Salbador HAYES,Sylvia 12/25/17 0712: Subjective Follow-up For: stroke coccaiine abuse HTN Tele-Events Since Last Visit: Normal sinus rhythm, 67, 0.08, 0.18 Subjective: She was seen and examined, continues to complain of weakness of the left side of his body, Review of Systems Constitutional: Reports: see HPI. Objective Last 24 Hrs of Vital Signs/I&O Vital Signs Date Time Temp Pulse Resp B/P B/P Pulse O2 O2 Flow FiO2 Mean Ox Delivery Rate 12/25 1443 99.2 80 18 172/94 97 Room Air 12/25 1037 66 174/92 12/25 0639 97.9 68 18 174/92 97 Room Air 12/24 2222 97.9 69 18 158/90 96 Room Air Intake & Output 12/25 1600 12/25 0800 12/25 0000 Intake Total 1000 880 880 Output Total 950 Balance 1000 -70 880 Intake, Oral 1000 880 880 Number 1 Bowel Movements Output, Urine 950 Patient 177 lb Weight Weight Bed scale Measurement Method Physical Exam General Appearance: Alert, Oriented X3, Cooperative, No Acute Distress Cardiovascular: Normal S1, Normal S2, No Murmurs Lungs: Clear to Auscultation Abdomen: Normal Bowel Sounds, Soft, No Tenderness Neurological: left sided paraparesis Extremities: No Clubbing, No Cyanosis, No Edema Assessment/Plan Assessment: 57-year-old gentleman with a past medical history significant for cocaine abuse, see daily stage III, diabetes type 2, hypertension, stopped taking any medication more than one year ago, presents with one-week history of left-sided weakness and a request for cocaine detox. When seen by the medical staff in the ED patient did not exhibit any focal neurological deficit. CT obtained was suggestive of chronic ischemic changes. CT Findings: 1. There are no acute territorial infarcts or bleeds. 2. There are linear areas of low attenuation in the basal ganglia bilaterally, demonstrated on prior imaging consistent with sequelae of chronic infarcts. An area of low attenuation in the right periventricular white matter is is consistent with sequelae of a chronic infarct. 3. Low attenuation in the right sharp radiata is nonspecific may be consistent with chronic microvascular ischemic changes, although an area of more acute ischemia cannot be excluded on the basis of this study. MRI: showed features of acute ischemic stroke Impression * Left-sided weakness in both upper and lower extremity with onset of about one week but now completely resolved. bridget does not appear to have any other focal neurological deficits including dysarthria or facial drooping, MRI showed acute ischemic stroke however the timeframe of 2-3 days , makes him out of TPA window * Polysubstance abuse evident by a positive U tox of PCP, cocaine and cannabis. * CKD stage III. Most likely secondary to hypertensive and diabetic neuropathy. * History of chronic disease; diabetes, hypertension. * arryhtmia: newly discovered Wenkebach Plan * Monitor on telemetry * Patient passed swallow evaluation with an intact gag reflex, and was eating a cheeseburger, will put patient on diabetic diet. * NIH every 3-4 hours for now for seizure precautions and monitor any neurological changes. * Aspirin 81 mg daily and atorvastatin 40 mg daily in the context of chronic subcortical infarcts * Neurology consult appreciated * Cardiology recommended appreciated * Start Clodipine 0.1 mg TID PRN for high blood pressure * Start amlodipine 5 mg daily * Follow-up on echocardiogram * Patient will need to stress test most likely outpatient * Currently patient is stable with no elevated blood pressure or agitation, will therefore hold off on any benzodiazepine and continue with supportive measures for his cocaine and PCP detox. We'll start benzodiazepine if blood pressure begins to be elevated and patient has any increased agitation. * Accu-Chek 3 times a day and bedtime * NovoLog sliding scale * Will consider renal u/s if creatinine increases * Will obtain Lyme titers * Physical therapy evaluation tomorrow morning given that the patient is below baseline * Social consult tomorrow morning * DVT prophylaxis; heparin * CODE STATUS full Problem List: 1. Left-sided weakness 2. Cocaine abuse Pain Ratin Pain Location: N/A Pain Goal: Remain pain free Pain Plan: Pathway Tomorrow's Labs & Rationales: Mikhail Ferrell 12/25/17 1143: Attending MD Review Statement Attending Statement Attending MD Statement: examined this patient, discuss w/resident/PA/DOG TRACK KENNEL MANAGER, agreed w/resident/PA/DOG TRACK KENNEL MANAGER, discussed with family, reviewed EMR data (avail), discussed with nursing, discussed with case mgmt, reviewed images, amended to note Attending Assessment/Plan: Patient seen/examined bedside. No new complaints. mobitz typ2 AV block on EKG, cardiology consulted. ECHO, Plan for cardiac catheterization as per cardiology. AVOID b [place]. Acute CVA with Left sided weakness. Neurology consult. MRI brain suggestive of infarct. ASA/statin. hbaic 8.1 New onset Diabetes mellitus. RISS and titrate insulin as needed. Metformin at discharge. Diabetes education to be given. CKD 2/2 DM/htn Drug abstinence advised. Independent at baseline. Continue telemetry monitroing
--- NOTE | 2017-12-25 11:04 | PN- Cardiology ---
Subjective Subjective: Feeling well this morning. No recurrent arrhtyhmic events, no recurrent AV block on telemetry. Denies chest pains. Echocardiogram to be performed this morning. Objective Vital Signs and I&Os Vital Signs Date Time Temp Pulse Resp B/P B/P Pulse O2 O2 Flow FiO2 Mean Ox Delivery Rate 12/25 1037 66 174/92 12/25 0639 97.9 68 18 174/92 97 Room Air 12/24 2222 97.9 69 18 158/90 96 Room Air 12/24 1455 98.0 75 18 158/80 97 Room Air Intake & Output 12/25 1600 12/25 0800 12/25 0000 12/24 1600 12/24 0800 12/24 0000 Intake Total 880 710 858 6142 775 Output Total 950 Balance -70 418 965 4616 775 Intake, IV 600 375 Intake, Oral 880 880 820 800 400 Number 2 Bowel Movements Output, Urine 950 Patient 177 lb 170 lb 170 lb Weight Weight Bed scale Bed scale Measurement Method Physical Exam General Appearance: no apparent distress, alert, awake, comfortable Neck: supple, trachea mid line (no JVD) Respiratory: normal breath sounds, chest non-tender, no respiratory distress, lungs clear Cardiovascular: regular rate/rhythm (no murmur), edema (apical impact normal) Abdomen: normal bowel sounds, soft, non-tender Extremities: normal capillary refill, no edema Neurologic/Psychiatric: no motor/sensory deficits (left leg weankess unchanged), awake, alert, oriented x 3, motor/sensory deficits (left arm drift unchanged) Assessment/Plan Assessment/Plan Multiple subacute and chronic stroke with left hemiparesis, dexterity deficit, slurred speech, paresthesia in patient with long standing daily cocaine use. 1 episode of 2nd degree type 2 AV block, asymptomatic, without recurrence, associated with ischemic changes in inferior territory on EKG. JUAN improving daily. continue ASA 81 mg daily. echocardiogram this morning. nuclear stress test either as inpatient or outpatient depending on length os stay. Continue telemetry? Yes
[2017-12-25 14:43] VITALS: BP 172/94
--- NOTE | 2017-12-25 18:28 | Cons- Neurology ---
General Information and HPI Consulting Request Date of Consult: 12/25/17 Requested By: Mikhail Kessler MD Reason for Consult: Strokes Source of Information: patient, EMR Exam Limitations: no limitations History of Present Illness: 57-year-old left-handed man with history of tobacco use, ethanol abuse, hypertension hyperlipidemia and diabetes mellitus with medication nonadherence, cocaine addiction, who presented requesting detox from cocaine. He also reported a one-week history of left arm and leg weakness. He states that he had a tendency to drop things from his left hand and would drag his left foot when walking. He denied headache or visual changes speech chewing or swallowing difficulties. Allergies/Medications Allergies: Coded Allergies: NO KNOWN ALLERGIES (02/09/15) Home Med List: No Known Home Medications Current Medications: Current Medications Sig/Erika Start time Last Medication Dose Route Stop Time Status Admin Amlodipine Besylate 5 MG DAILY 12/25 0900 AC 12/25 PO 1037 Aspirin 81 MG DAILY 12/23 1630 AC 12/25 PO 0831 Atorvastatin Calcium 80 MG 1700 12/24 1700 AC 12/24 PO 1710 Heparin Sodium 5,000 UNIT Q8 12/23 2200 AC 12/25 (Porcine) SC 1322 Insulin Aspart 0 TIDAC 12/23 1700 AC 12/25 SC 1803 Lorazepam 0 Q1P PRN 12/23 1745 AC IV Nicotine 7 MG DAILY 12/24 1554 AC 12/25 TOP 0834 Review of Systems Review of Systems: Otherwise noncontributory Past History Travel History Traveled to [place] past 21 day No Medical History Blood Transfusion Hx: No Neurological: NONE EENT: NONE Cardiovascular: hypertension, hyperlipidemia Respiratory: NONE Gastrointestinal: perirectal abscess Hepatic: NONE Renal: nephrolithiasis Musculoskeletal: gout Psychiatric: alcohol dependence, anxiety, substance abuse Endocrine: diabetes Blood Disorders: NONE Cancer(s): NONE 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 Home Who Do You Live With? self Services at Home: None Primary Language: Dominican Smoking Status: Current Everyday Smoker Illicit Drug Use: cocaine, marijuana Living Will? no Functional Ability ADLs Independent: dressing, eating, toileting, bathing. Ambulation: independent IADLs Independent: shopping, housework, finances, food prep, telephone, transportation , medication admin. Exam & Diagnostic Data Vital Signs and I&O Vital Signs Date Time Temp Pulse Resp B/P B/P Pulse O2 O2 Flow FiO2 Mean Ox Delivery Rate 12/25 1443 99.2 80 18 172/94 97 Room Air 12/25 1037 66 174/92 12/25 0639 97.9 68 18 174/92 97 Room Air 12/24 2222 97.9 69 18 158/90 96 Room Air Intake & Output 12/25 1600 12/25 0800 12/25 0000 Intake Total 1000 880 880 Output Total 950 Balance 1000 -70 880 Intake, Oral 1000 880 880 Number 1 Bowel Movements Output, Urine 950 Patient 177 lb Weight Weight Bed scale Measurement Method Physical Exam: Awake alert cooperative pleasant mildly pressured speech Head normocephalic atraumatic Neck supple Heart regular rate and rhythm Extremities without clubbing cyanosis or edema Neurologic exam: He was awake alert and oriented to person place and time. Speech was fluent with intact naming repetition and comprehension. Some dysarthria was present which was judged to be related to edentulous state (upper ) Intact facial sensation Muscles of facial expression and mastication normal in power Shoulder shrug symmetric Grossly intact hearing Motor: 4-4+ out of 5 strength in the left upper and lower extremities Normal strength on the right No limb ataxia Mildly impaired fine motor and rapid alternating movements on the left Mild gait abnormality with left knee recur bottom and reduced left leg stance time and occasional left leg scissoring Last 48 Hours of Lab Results: Laboratory Tests 12/25 12/24 12/23 0633 0625 2100 Chemistry Sodium (137 - 145 mmol/L) 140 140 Potassium (3.5 - 5.1 mmol/L) 4.3 4.1 Chloride (98 - 107 mmol/L) 107 109 H Carbon Dioxide (22 - 30 mmol/L) 21 L 23 Anion Gap (5 - 16) 12 8 BUN (9 - 20 mg/dL) 23 H 24 H Creatinine (0.7 - 1.2 mg/dL) 1.4 H 1.4 H Estimated GFR (>60 ml/min) 52 L 52 L BUN/Creatinine Ratio (7 - 25 %) 16.4 17.1 Troponin I (<0.11 ng/ml) 0.02 Hematology CBC w Diff NO MAN DIFF REQ WBC (4.8 - 10.8 /CUMM) 7.0 RBC (4.70 - 6.10 /CUMM) 4.92 Hgb (14.0 - 18.0 G/DL) 14.6 Hct (42 - 52 %) 43.3 MCV (80.0 - 94.0 FL) 88.1 MCH (27.0 - 31.0 PG) 29.8 MCHC (33.0 - 37.0 G/DL) 33.8 RDW (11.5 - 14.5 %) 12.2 Plt Count (130 - 400 /CUMM) 235 MPV (7.4 - 10.4 FL) 8.6 Gran % (42.2 - 75.2 %) 57.3 Lymphocytes % (20.5 - 51.1 %) 31.0 Monocytes % (1.7 - 9.3 %) 6.3 Eosinophils % (0 - 5 %) 4.6 Basophils % (0.0 - 2.0 %) 0.8 Absolute Granulocytes (1.4 - 6.5 /CUMM) 4.0 Absolute Lymphocytes (1.2 - 3.4 /CUMM) 2.2 Absolute Monocytes (0.10 - 0.60 /CUMM) 0.4 Absolute Eosinophils (0.0 - 0.7 /CUMM) 0.3 Absolute Basophils (0.0 - 0.2 /CUMM) 0.1 Imaging/Other Studies: PATIENT: CHRIS BLANK PRESENT AGE: 57 PATIENT ACCOUNT NO: [id number] : 61 LOCATION: [facility] ORDERING PHYSICIAN: Cuauhtemoc Lama MD SERVICE DATE: 12/24/17- EXAM TYPE: MRI - MRI-HEAD W/O KRYSTINA EXAMINATION: MR BRAIN WITHOUT CONTRAST CLINICAL INFORMATION: CT findings of chronic ischemic changes. Subacute stroke. COMPARISON: CT scan of the head 12/23/2017. TECHNIQUE: MRI of the brain without contrast was obtained using routine sequences. FINDINGS: There is an area of restricted diffusion in the right periventricular region posteriorly. This corresponds to an area of T2 and FLAIR hyperintensity, consistent with an acute infarct. A small focus of diffusion hyperintensity in the left basal ganglia does not demonstrate low ADC map signal, and is consistent with a small focus of subacute ischemia. Neither of these regions demonstrates evidence of hemorrhage. No hemorrhage is demonstrated elsewhere. No mass effect or midline shift is seen. The ventricles and sulci appear normal. In addition to the signal changes described above, there are areas of increased T2 and FLAIR hyperintensity in the periventricular and subcortical white matter, as well as within the nain consistent with chronic microvascular ischemic disease. An area of linear mixed signal in the posterior right basal ganglia demonstrates some low gradient signal, consistent sequelae of a hemorrhagic likely hypertensive infarct. There are lacunar infarcts in the basal ganglia bilaterally and in the posterior left cerebellar hemisphere. No evidence of acute ischemia is seen in the right centrum semiovale. No extra-axial fluid collections are seen. The craniovertebral junction, marrow signal, and midline structures are normal. The major intracranial flow-voids at the level of the [place] are preserved. The dural venous sinus flow-voids are maintained. The mastoid air cells are well-aerated. The left frontal sinus is not pneumatized. There is mild mucoperiosteal thickening in the ethmoid sinuses bilaterally. IMPRESSION: 1. There is a small area of restricted diffusion consistent with an acute infarct in the right periventricular region posteriorly. There is no evidence of hemorrhagic transformation. A small focus of facilitated diffusion in the left basal ganglia is consistent with subacute ischemia. 2. There are microvascular ischemic changes in the white matter and in the nain. There are chronic infarcts in the bilateral basal ganglia and left cerebral hemisphere. Linear low signal in the right basal ganglia is consistent with sequelae of prior hemorrhagic infarct, likely hypertensive. DICTATED BY: Farhan Owen MD DATE/TIME DICTATED:12/24/171144 MANAGER FIELD:DAVID DATE/TIME TRANSCRIBED:12/24/171144 CONFIDENTIAL, DO NOT COPY WITHOUT APPROPRIATE AUTHORIZATION. <Electronically signed in Other Vendor System> SIGNED BY: Farhan Owen MD 12/24/17 3914 Assessment/Plan Assessment: Recent right MCA territory subcortical infarct with associated left hemiparesis Old multi focal infarcts likely the result of cerebral atherosclerosis Multiple stroke risk factors including tobacco use, cocaine use, medication nonadherence in the setting of hypertension, hyperlipidemia, and diabetes mellitus Recommendations: Check an echocardiogram and carotid ultrasound Continue antiplatelet and statin therapy Blood pressure control Substance abuse counseling Stroke education Smoking cessation Physical and occupational therapy Consult Acknowledgment - Thank you for your consult request.
[2017-12-25 22:14] VITALS: BP 152/92
[2017-12-26 06:00] VITALS: BP 138/82
--- NOTE | 2017-12-26 07:14 | PN- Housestaff ---
Salbador HAYES,Sylvia 12/26/17 0714: Subjective Follow-up For: stroke coccaiine abuse HTN Tele-Events Since Last Visit: No overnight events Subjective: Patient was seen and examined, he had a bout of chest pain which lasted only 30 seconds yesterday, EKG was normal Review of Systems Constitutional: Reports: see HPI. Objective Last 24 Hrs of Vital Signs/I&O Vital Signs Date Time Temp Pulse Resp B/P B/P Pulse O2 O2 Flow FiO2 Mean Ox Delivery Rate 12/26 0809 130/88 12/26 06 98.7 68 18 138/82 96 12/25 2214 98.1 77 18 152/92 97 12/25 1443 99.2 80 18 172/94 97 Room Air Intake & Output 12/26 1600 12/26 0800 12/26 0000 Intake Total 500 Output Total Balance 500 Intake, Oral 500 Patient 180 lb Weight Physical Exam General Appearance: Alert, Oriented X3, Cooperative, No Acute Distress Neck: Supple, No JVD Cardiovascular: Normal S1, Normal S2, No Murmurs Lungs: Clear to Auscultation Abdomen: Normal Bowel Sounds, Soft, No Tenderness Extremities: No Edema Assessment/Plan Assessment: 57-year-old gentleman with a past medical history significant for cocaine abuse, see daily stage III, diabetes type 2, hypertension, stopped taking any medication more than one year ago, presents with one-week history of left-sided weakness and a request for cocaine detox. When seen by the medical staff in the ED patient did not exhibit any focal neurological deficit. CT obtained was suggestive of chronic ischemic changes. CT Findings: 1. There are no acute territorial infarcts or bleeds. 2. There are linear areas of low attenuation in the basal ganglia bilaterally, demonstrated on prior imaging consistent with sequelae of chronic infarcts. An area of low attenuation in the right periventricular white matter is is consistent with sequelae of a chronic infarct. 3. Low attenuation in the right sharp radiata is nonspecific may be consistent with chronic microvascular ischemic changes, although an area of more acute ischemia cannot be excluded on the basis of this study. MRI: showed features of acute ischemic stroke Impression * Left-sided weakness in both upper and lower extremity with onset of about one week but now completely resolved. atient does not appear to have any other focal neurological deficits including dysarthria or facial drooping, MRI showed acute ischemic stroke however the timeframe of 2-3 days , makes him out of TPA window * Polysubstance abuse evident by a positive U tox of PCP, cocaine and cannabis. * CKD stage III. Most likely secondary to hypertensive and diabetic neuropathy. * History of chronic disease; diabetes, hypertension. * arryhtmia: newly discovered Wenkebach Plan * Monitor on telemetry * Patient passed swallow evaluation with an intact gag reflex, and was eating a cheeseburger, will put patient on diabetic diet. * NIH every 3-4 hours for now for seizure precautions and monitor any neurological changes. * Aspirin 81 mg daily and atorvastatin 40 mg daily in the context of chronic subcortical infarcts * Neurology recommendation appreciated * Cardiology recommended appreciated * Start Clodipine 0.1 mg TID PRN for high blood pressure * Start amlodipine 5 mg daily * Follow-up on echocardiogram * Patient will need to stress test most likely outpatient * Currently patient is stable with no elevated blood pressure or agitation, will therefore hold off on any benzodiazepine and continue with supportive measures for his cocaine and PCP detox. We'll start benzodiazepine if blood pressure begins to be elevated and patient has any increased agitation. * Accu-Chek 3 times a day and bedtime * NovoLog sliding scale * Will consider renal u/s if creatinine increases * Will obtain Lyme titers * Physical therapy evaluation tomorrow morning given that the patient is below baseline * Social consult tomorrow morning * DVT prophylaxis; heparin * CODE STATUS full Problem List: 1. Left-sided weakness 2. Stroke Pain Ratin Pain Location: N/A Pain Goal: Remain pain free Pain Plan: Pathway Tomorrow's Labs & Rationales: N/A Mikhail Kessler 12/26/17 1032: Attending MD Review Statement Attending Statement Attending MD Statement: examined this patient, discuss w/resident/PA/TREATMENT TECHNICIAN, agreed w/resident/PA/TREATMENT TECHNICIAN, discussed with family, reviewed EMR data (avail), discussed with nursing, discussed with case mgmt, reviewed images, amended to note Attending Assessment/Plan: Patient seen/examined bedside. No new complaints. One episode of second degree heart block: f/u ECHO, Plan for cardiac catheterization as per cardiology. AVOID b [place]. Acute CVA with Left sided residual weakness. Neurology on board. MRI brain suggestive of infarct. ASA/statin. Hbaic 8.1 uncontrolled Diabetes mellitus. RISS and titrate insulin as needed. Metformin at discharge. Diabetes education. Drug abstinence advised. Referral to addictiion clinic PT consult recommend home PT/OT. Referral for outpatient PT given. Anticipate dc today.
[2017-12-26] MEDS ORDERED: NICOTINE PATCH1 EAC1 TOP (09:53)
[2017-12-26] MEDS ORDERED: AMLODIPINE BESYL5 M1 PO (09:53)
[2017-12-26] MEDS ORDERED: METFORMIN HCL500 M2 PO (09:53)
[2017-12-26] MEDS ORDERED: ATORVASTATIN CA80 M1 PO (09:53)
[2017-12-26] MEDS ORDERED: ASPIRIN81 M4 PO (09:53)
--- NOTE | 2017-12-26 09:53 | Patient Discharge Instructions ---
Discharge Instructions General Discharge Information You were seen/treated for: Acute stroke Coccaine abuse Special Instructions: 1please follow-up with your PCP in 1 week of discharge 2please follow-up with outpatient physical therapy after discharge 3please follow-up with youth care specialist in 1 week of discharge 4-please follow up with director inbound sales Dr. Leung within one week after discahrge for nuclear stress test 5please come back to the ED if he experience weakness of any particular body 6please take medications as advised Diet Continue normal diet: No Recommended Diet: Diabetic Acute Coronary Syndrome Inclusion Criteria At DC or during hospital stay patient has or had the following: ACS DIAGNOSIS No Discharge Core Measures Meds if any: Prescribed or Continued at Discharge Meds if any: NOT Prescribed or Continued at Discharge Congestive Heart Failure Inclusion Criteria At DC or during hospital stay patient has or had the following: CHF DIAGNOSIS No Discharge Core Measures Meds if any: Prescribed or Continued at Discharge Meds if any: NOT Prescribed or Continued at Discharge Cerebrovascular accident Inclusion Criteria At DC or during hospital stay patient has or had the following: CVA/TIA Diagnosis Yes Discharge Core Measures Meds if any: Prescribed or Continued at Discharge Antithrombotic Yes Statin (required if LDL =>70) Yes Anticoagulant Yes Meds if any: NOT Prescribed or Continued at Discharge Venous thromboembolism Inclusion Criteria VTE Diagnosis No VTE Type NONE VTE Confirmed by (Test) NONE Discharge Core Measures - Per Current guidelines, there needs to be overlap - treatment for the first 5 days of Warfarin therapy. - If discharged on Warfarin prior to 5 days of - overlap therapy, the patient will need to be - assessed for post discharge needs including - *Post discharge parental anticoagulation - *Warfarin and/or parental anticoagulation education - *Follow up date to check INR post discharge At least 5 days overlap therapy as Inpatient No Meds if any: Prescribed or Continued at Discharge Note: Overlap Therapy is Warfarin and Anticoagulant Meds if any: NOT Prescribed or Continued at Discharge
--- NOTE | 2017-12-26 10:01 | Discharge Summary ---
Visit Information Visit Dates Admission Date: 12/23/17 Discharge Date: 12/26/17 Hospital Course Course Attending Physician: Mikhail Kessler MD Primary Care Physician: Dr.David Garcia Hospital Course: 57-year-old gentleman with a past medical history significant for cocaine abuse with multiple outpatient and rehabilitation treatment failures, CK D stage III, type 2 diabetes, hypertension, noncompliance with medication therapy stopping his BP and diabetes medication more than a year ago, presented to [facility] ED with c/o of 1 week history of left-sided weakness and request for cocaine detox. Pt reported that he uses cocaine on almost a daily basis and his last use was a few hours before presenting to the ED. He also reports that for the past 1 week he has noticed left-sided upper and lower extremity weakness with noticeable decrease of strength while ambulating and also use when using his left hand for grasping objects ED course: CBC was within normal limits, BEP showed BUN 27, creatinine 1.4, hemoglobin A1c 8.1, glucose 150, normal troponin and EKG, urine tox was positive for urine cannabis and phencyclidine, Lyme disease antibody was negative Carotid Doppler: Plaque is present in the internal carotid arteries but velocity measurements are normal and there is no evidence to suggest a hemodynamically significant stenosis of greater than 50% diameter reduction. Echocardiogram: Normal left ventricular size and systolic function with no obvious regional wall motion abnormalities. Mild concentric hypertrophy. Normal left ventricular diastolic filling pattern for age. The ejection fraction is visually estimated at 60 %. The right ventricle is normal in size and function. The interatrial septum is intact. There is no mitral regurgitation. There is trace tricuspid regurgitation. Pulmonary artery systolic pressure is normal. There is trace pulmonic regurgitation. Normal aortic root dimension. The aortic arch and great vessels are not well visualized. Head MRI: 1. There is a small area of restricted diffusion consistent with an acute infarct in the right periventricular region posteriorly. There is no evidence of hemorrhagic transformation. A small focus of facilitated diffusion in the left basal ganglia is consistent with subacute ischemia. 2. There are microvascular ischemic changes in the white matter and in the nain. There are chronic infarcts in the bilateral basal ganglia and left cerebral hemisphere. Linear low signal in the right basal ganglia is consistent with sequelae of prior hemorrhagic infarct, likely hypertensive. Head CT: 1. There are no acute territorial infarcts or bleeds. 2. There are linear areas of low attenuation in the basal ganglia bilaterally, demonstrated on prior imaging consistent with sequelae of chronic infarcts. An area of low attenuation in the right periventricular white matter is is consistent with sequelae of a chronic infarct. 3. Low attenuation in the right sharp radiata is nonspecific may be consistent with chronic microvascular ischemic changes, although an area of more acute ischemia cannot be excluded on the basis of this study. He was admitted to telemetry for treatment of the following condition: Monitor on telemetry #Acute stroke with left-sided weakness: Acute stroke in right periventricular region posteriorly was found on MRI, carotid Doppler showed no significant stenosis of his carotid, , however the patient presented 3 days after the beginning of symptoms which make him out of the TPA window, neurology were on board, they recommended continuing with aspirin and statin #Hypertension: Patient was not compliant with his home meds for over 1 year, he was started on amlodipine 5 mg p.o. daily which he was discharged on, he was given a referral to [facility] as primary care in addition to industrial safety and health specialist Dr. Leung to f/u outpatieint, #Type 2 diabetes mellitus Hemoglobin A1c was 8.1, he was treated with fingerstick glucose, insulin sliding scale, on discharge he was started on metformin 500 mg p.o. twice daily #History of cocaine abuse: An admission urine was positive for cannabis and phencyclidine, on discharge the patient was counseling regarding substance abuse, he was given referral to [facility] physician * DVT prophylaxis; heparin * CODE STATUS full Allergies: Coded Allergies: NO KNOWN ALLERGIES (02/09/15) Disposition Summary Disposition Principal Diagnosis: Acute stroke with left-sided weakness Additional Diagnosis: Cocaine abuse Discharge Disposition: home or self care Discharge Instructions General Discharge Information Code Status: Full Code Patient's Diet: Consistent carbohydrate Patient's Activity: As tolerated Follow-Up Instructions/Appts: 1please follow-up with your PCP in 1 week of discharge 2please follow-up with outpatient physical therapy after discharge 3please follow-up with contact center specialist in 1 week of discharge 4-please follow up with industrial safety and health specialist Dr. Leung within one week after discahrge for nuclear stress test 5please come back to the ED if he experience weakness of any part of your body 6please take medications as advised Medications at Discharge Discharge Medications: Start taking the following new medications: Nicotine (Nicotine Patch) 7 MG/24 HOUR PATCH.TD24 7 Milligram On the skin DAILY Qty = 30 No Refills Comments: GIVEN 12/25/17 @ 0830 Atorvastatin Calcium (Atorvastatin Calcium) 80 MG TABLET 80 Milligram ORAL 5 PM Qty = 30 No Refills Comments: GIVEN 12/25/17 @ 5PM Amlodipine Besylate (Amlodipine Besylate) 5 MG TABLET 5 Milligram ORAL DAILY Qty = 30 No Refills Comments: GIVEN 12/26/17 @ 0810 Aspirin (Aspirin*) 81 MG TAB.CHEW 81 Milligram ORAL DAILY Qty = 30 No Refills Comments: GIVEN 12/26/17 @ 0810 Metformin HCl (Metformin HCl ER) 500 MG TAB.ER.24 1 Tablet ORAL TWICE DAILY Qty = 30 No Refills Comments: NOT GIVEN IN HOSPITAL Copies To: Jose HAYES,Jeremy Panchal Attending MD Review Statement Documenting Attending: [place] HAYES,Mikhail Other Findings: Acute CVA with Left sided residual weakness. Neurology consulted. MRI brain suggestive of infarct. ASA/statin. One episode of second degree heart block: ECHO with no RWMA, AVOID b [place]. Hbaic 8.1 uncontrolled Diabetes mellitus. RISS and titrate insulin as needed. Metformin at discharge. Diabetes education. Drug abstinence advised. Referral to [facility] clinic PT consult recommend home PT/OT. Referral for outpatient PT given. Patient advised to follow up with PCP as scheduled appointment.
--- NOTE | 2017-12-26 11:18 | ULTRASOUND REPORT ---
EXAMINATION: US DUPLEX CAROTID AND VERTEBRAL CLINICAL INFORMATION: 57-year-old male with recent stroke and left hemiparesis. History of cocaine use. COMPARISON: None TECHNIQUE: Real-time ultrasound and Doppler techniques (integrating B-mode 2D vascular images, Doppler spectral analysis and color flow Doppler imaging) were utilized to interrogate the extracranial carotid and vertebral arteries bilaterally. The degree of stenosis determined by criteria similar to NASCET. FINDINGS: 1. On the right: Calcified plaque is present at the carotid bifurcation but velocity measurements are normal and do not suggest a stenosis of greater than 50% diameter reduction in the right ICA. The vertebral artery is patent demonstrating antegrade flow. The common carotid artery velocity is 63 cm/s. The internal carotid artery velocities are 46 cm/s systolic and 19 cm/s diastolic. The external carotid artery velocity is 100 cm/s. 2. On the left: Soft plaque is present at the carotid bifurcation but velocity measurements are normal and do not suggest a stenosis of greater than 50% diameter reduction in the left ICA. The vertebral artery is patent demonstrating antegrade flow. The common carotid artery velocity is 82 cm/s. The internal carotid artery velocities are 54 cm/s systolic and 20 cm/s diastolic. The external carotid artery velocity is 85 cm/s. IMPRESSION: Plaque is present in the internal carotid arteries but velocity measurements are normal and there is no evidence to suggest a hemodynamically significant stenosis of greater than 50% diameter reduction.
--- NOTE | 2017-12-26 12:32 | ECHOCARDIOGRAM REPORT ---
CHRIS BLANK Age: 57 : 1960 Gender: M Exam Date: 12/25/2017 09:13 Exam Location: 1 [address] Ht (in): 64 Wt (lb): 170 BSA: 1.89 BP: 158 / 80 Ordering Physician: Angela Welch MD Referring Physician: Angela Welch MD Technologist: Hay Salas [facility] Room Number: 188-1 Indications: Arrhythmia Rhythm: Sinus Technical Quality: good FINDINGS Left Ventricle Normal left ventricular size and systolic function with no obvious regional wall motion abnormalities. Mild concentric hypertrophy. Normal left ventricular diastolic filling pattern for age. The ejection fraction is visually estimated at 60 %. Right Ventricle The right ventricle is normal in size and function. Right Atrium The right atrium is normal in size. Left Atrium The left atrium is normal in size. The interatrial septum is intact. Mitral Valve There is mild mitral annular calcification. There is no mitral regurgitation. Aortic Valve Structurally normal aortic valve without significant sclerosis or stenosis. There is no aortic regurgitation. Tricuspid Valve The tricuspid valve is normal in structure and function. There is trace tricuspid regurgitation. Pulmonary artery systolic pressure is normal. Pulmonic Valve Structurally normal pulmonic valve. There is trace pulmonic regurgitation. Pericardium Normal pericardium without effusion. No pleural effusion. Great Vessels Normal aortic root dimension. The aortic arch and great vessels are not well visualized. CONCLUSIONS Normal left ventricular size and systolic function with no obvious regional wall motion abnormalities. Mild concentric hypertrophy. Normal left ventricular diastolic filling pattern for age. The ejection fraction is visually estimated at 60 %. The right ventricle is normal in size and function. The interatrial septum is intact. There is no mitral regurgitation. There is trace tricuspid regurgitation. Pulmonary artery systolic pressure is normal. There is trace pulmonic regurgitation. Normal aortic root dimension. The aortic arch and great vessels are not well visualized. Lucien Leung M.D. (Electronically Signed) Final Date: 26 December 2017 12:31 MEASUREMENTS (Male / Female) Normal Values 2D ECHO LV Diastolic Diameter PLAX 4.4 cm 4.2 - 5.9 / 3.9 - 5.3 cm LV Systolic Diameter PLAX 3.4 cm 2.1 - 4.0 cm LV Fractional Shortening PLAX 22.7 % 25 - 46 % LV Ejection Fraction 2D Teich 45.9 % IVS Diastolic Thickness 1.2 cm LVPW Diastolic Thickness 1.2 cm LV Relative Wall Thickness 0.5 RV Internal Dim ED PLAX 3.1 cm 1.9 - 3.8 cm LVOT Diameter 1.9 cm Aortic Root Diameter 3.1 cm LA Systolic Diameter LX 3.6 cm 3.0 - 4.0 / 2.7 - 3.8 cm LA Volume 34.0 cm 18 - 58 / 22 - 52 cm Ascending Aorta Diameter 3.5 cm DOPPLER AV Peak Velocity 159.0 cm/s AV Peak Gradient 10.1 mmHg AV Mean Velocity 106.0 cm/s AV Mean Gradient 5.0 mmHg AV Velocity Time Integral 32.8 cm LVOT Peak Velocity 97.8 cm/s LVOT Peak Gradient 3.8 mmHg LVOT Mean Velocity 58.6 cm/s LVOT Mean Gradient 2.0 mmHg LVOT Velocity Time Integral 20.3 cm LVOT Stroke Volume 57.6 cm AV Area Cont Eq vti 1.8 cm AV Area Cont Eq pk 1.7 cm MV Peak Velocity 89.6 cm/s MV Peak Gradient 3.2 mmHg MV Mean Velocity 47.3 cm/s MV Mean Gradient 1.0 mmHg Mitral E Point Velocity 57.8 cm/s Mitral A Point Velocity 73.5 cm/s Mitral E to A Ratio 0.8 MV PHT Velocity 65.2 cm/s MV Deceleration Ada 160.0 cm/s MV Pressure Half Time 122.3 ms MV Area PHT 1.8 cm MV Deceleration Time 327.0 ms PV Peak Velocity 49.6 cm/s PV Peak Gradient 1.0 mmHg PV Mean Velocity 71.0 cm/s PV Mean Gradient 2.0 mmHg PV Velocity Time Integral 20.7 cm LV E' Lateral Velocity 7.2 cm/s Mitral E to LV E' Lateral Ratio 8.0 LV E' Septal Velocity 5.4 cm/s Mitral E to LV E' Septal Ratio 10.8
[2017-12-26 14:30] VITALS: BP 138/90
--- NOTE | 2017-12-26 15:34 | PN- Cardiology ---
Subjective Subjective: Felling well, no complaints. No recurrence of arrhythmia on telemetry. No wall motion abnormality on echocardiogram. Objective Vital Signs and I&Os Vital Signs Date Time Temp Pulse Resp B/P B/P Pulse O2 O2 Flow FiO2 Mean Ox Delivery Rate 12/26 0809 130/88 12/26 06 98.7 68 18 138/82 96 12/25 2214 98.1 77 18 152/92 97 Intake & Output 12/26 1600 12/26 0800 12/26 0000 12/25 1600 12/25 0800 12/25 0000 Intake Total 500 1000 880 880 Output Total 950 Balance 500 1000 -70 880 Intake, Oral 500 1000 880 880 Number 1 Bowel Movements Output, Urine 950 Patient 180 lb 177 lb Weight Weight Bed scale Measurement Method Physical Exam General Appearance: alert, awake, comfortable Head: atraumatic Neck: supple, full range of motion, trachea mid line Respiratory: normal breath sounds, chest non-tender, no respiratory distress, lungs clear Cardiovascular: regular rate/rhythm (no rub, no murmur) Abdomen: normal bowel sounds, soft, non-tender Extremities: normal capillary refill, no edema Neurologic/Psychiatric: alert, oriented x 3, abnormal gait, facial droop, motor/ sensory deficits (right side) Assessment/Plan Assessment/Plan Multiple acute and subacute white matter and periventricular strokes in patient with chronic cocaine use. Right hemiplegia, loss of dexterity dysphagia secondary to stroke. 1 episode of 2nd degree, type 2 AV block, asymptomatic. I am in agreement with discharge today and will see the patient at my office after completion of a nuclear stress test. Continue telemetry? Not applicable
== END 2017-12-26 15:34 | DRG 45 ==
LOC: DELPENDDIS → ERH 11:38 → ERHI 14:25 → 1NO 14:25 → ENTRNSPT 16:37 → EDTRNSPTSTS 16:46 → 1NO 17:05 → CMPTRNSPT 17:09 → 1NO 17:15 → ENPENDDIS 12-26 10:11 → 1NO 12-26 15:34
PROVIDERS: Physician Assistant Medical; Student in an Organized Health Care Education/Training Program
DX: I63.8 Other cerebral infarction (principal); N17.9 Acute kidney failure, unspecified; G81.94 Hemiplegia, unspecified affecting left nondominant side; F10.20 Alcohol dependence, uncomplicated; Y90.0 Blood alcohol level of less than 20 mg/100 ml; F14.129 Cocaine abuse with intoxication, unspecified; E11.22 Type 2 diabetes mellitus with diabetic chronic kidney disease; I12.9 Hypertensive chronic kidney disease with stage 1 through stage 4 chronic kidney disease, or unspecified chronic kidney disease; N18.3 Chronic kidney disease, stage 3 (moderate); Z91.14 Patient's other noncompliance with medication regimen; R53.1 Weakness; F19.10 Other psychoactive substance abuse, uncomplicated; I44.1 Atrioventricular block, second degree; R47.1 Dysarthria and anarthria; M10.9 Gout, unspecified; F32.9 Major depressive disorder, single episode, unspecified; F41.9 Anxiety disorder, unspecified; F17.210 Nicotine dependence, cigarettes, uncomplicated; F12.90 Cannabis use, unspecified, uncomplicated
CPT/HCPCS: 1NP; 70551; 86618; 36415; 36592; 80307; 81001; 82436; 93005; 93010; 93306; 97116-GO; 97161-GP; G0480; J1644; J3490